=== PATIENT | female | born 1965 | race Caucasian/White ===

== ENCOUNTER 2017-04-09 00:13 | Emergency (ER) | payer OTHER ==
[~2017-04-09] VITALS: Ht 149.9 cm; Wt 86.2 kg
== END 2017-04-09 03:15 | disposition home or self-care (01) ==
LOC: ED 00:13
DX: N95.0 Postmenopausal bleeding (principal); F17.200 Nicotine dependence, unspecified, uncomplicated
CPT/HCPCS: 80053; 85025; 87491; 87591; 99284